=== PATIENT | male | born 1960 | race Caucasian/White ===

== ENCOUNTER → 2019-05-05 | Outpatient (CLI) | payer OTHER, MEDICARE ==
[2015-01-08 13:33] VITALS: BP 147/89
[~2019-05-05] MED LIST: AMOX500C PO; DIAZ5TAB4 PO; LOPE1LIQ7 PO; OXYB5TAB7 PO
--- NOTE | 2019-05-05 11:37 | RAD ---
EXAM: Left foot, 3 views. HISTORY: Second toe fracture. COMPARISON: None. FINDINGS: 3 views of the left foot are obtained. There is lucency traversing the distal fifth metatarsal adjacent to the metatarsal head, possibly due to bone demineralization or nondisplaced fracture. The reported fracture involving the second phalanx is not seen. There is bandage material overlying the first phalanx. There is bone demineralization. There is dorsal forefoot soft tissue swelling. IMPRESSION: 1. Possible nondisplaced distal fifth metatarsal fracture. This is not well characterized due to bone demineralization. Correlate for point tenderness in this location. 2. Dorsal forefoot soft tissue swelling. 3. Note is made that a reported second toe fracture is not seen on the submitted images. There is no prior study for correlation. Electronically signed by: Cintia Purcell MD (05/05/2019 11:34 AM) [id number]
== END | disposition home or self-care (01) ==
LOC: DXRAD 10:14
PROVIDERS: ATTEND Podiatrist Foot & Ankle Surgery
DX: M79.89 Other specified soft tissue disorders (principal)
CPT/HCPCS: 73630